=== PATIENT | female | born 1975 | race Caucasian/White ===

== ENCOUNTER 2018-03-11 10:35 | Inpatient (IN) | payer MEDICARE, MEDICAID ==
[2018-03-11 11:11] LABS: VENOUS BLOOD BASE EXCESS -1.8 mmol/L; VENOUS BLOOD HCO3 25.3 mmol/L (20-32); VENOUS BLOOD PCO2 51.7 mmHg (35-63); VENOUS BLOOD PH 7.31 (7.30-7.42)
[2018-03-11 11:14] LABS: ABSOLUTE BASOPHILS # (AUTO) 0.1 10^3/uL (0.0-0.2); ABSOLUTE EOSINOPHILS # (AUTO) 0.4 10^3/uL (0.0-0.6); ABSOLUTE LYMPHOCYTES (AUTO) 2.4 10^3/uL (0.5-4.7); ABSOLUTE MONOCYTES (AUTO) 0.7 10^3/uL (0.1-1.4); BASOPHILS % (AUTO) 0.9 % (0-2); EOSINOPHILS % (AUTO) 4.1 % (0-6); HEMATOCRIT 42.8 % (36.0-47.0); HEMOGLOBIN 14.5 g/dL (12.0-15.5); LYMPHOCYTES % (AUTO) 27.7 % (13-45); MEAN CORPUSCULAR VOLUME 88 fl (80-97); MONOCYTES % (AUTO) 8.4 % (3-13); PLATELET COUNT 377 10^3/uL (150-450); RED BLOOD COUNT 4.85 10^6/uL (3.72-5.28); RED CELL DISTRIBUTION WIDTH 14.3 % (11.5-14.0); SEGMENTED NEUTROPHILS % (AUTO) 58.9 % (42-78); TOTAL CELLS COUNTED % (AUTO) 100 %; WHITE BLOOD COUNT 8.5 10^3/uL (4.0-10.5)
[2018-03-11] MEDS ORDERED: IPRATROPIUM/ALBUTEROL 0.5-2.5 MG/3 ML AMPUL NEB ONE (11:15)
[2018-03-11] MEDS ORDERED: MAGNESIUM SULFATE/D5W 1 GM/100 ML RTUPB IV ONE (11:15)
[2018-03-11] MEDS ORDERED: ONDANSETRON HCL INJ/PF 4 MG/2 ML SDV IV ONE (11:25)
[2018-03-11] MEDS ORDERED: PROCHLORPERAZINE EDISYLATE INJ 10 MG/2 ML VIAL IV ONE (11:25)
[2018-03-11 11:29] LABS: ALANINE AMINOTRANSFERASE 31 U/L (9-52); ALBUMIN 4.9 g/dL (3.5-5.0); ALKALINE PHOSPHATASE 64 U/L (38-126); ANION GAP 15 (5-19); ASPARTATE AMINO TRANSFERASE 37 U/L (14-36); BILIRUBIN,DIRECT 0.4 mg/dL (0.0-0.4); BILIRUBIN,TOTAL 0.5 mg/dL (0.2-1.3); BLOOD UREA NITROGEN 10 mg/dL (7-20); CALCIUM 9.5 mg/dL (8.4-10.2); CARBON DIOXIDE 24 mmol/L (22-30); CHLORIDE 105 mmol/L (98-107); CREATINE KINASE 272 U/L (30-135); GLUCOSE 126 mg/dL (75-110); LIPASE 116.7 U/L (23-300); POTASSIUM 3.9 mmol/L (3.6-5.0); SODIUM 144.4 mmol/L (137-145); TOTAL PROTEIN 8.3 g/dL (6.3-8.2)
[2018-03-11 11:41] LABS: CREATINE KINASE MB 3.92 ng/mL (<4.55)
--- NOTE | 2018-03-11 11:42 | RADIOLOGY REPORT (SQ) ---
EXAM DESCRIPTION: CHEST SINGLE VIEW COMPLETED DATE/TIME: 03/11/2018 11:33 am REASON FOR STUDY: sob COMPARISON: 10/09/2015 EXAM PARAMETERS: NUMBER OF VIEWS: One view. TECHNIQUE: Single frontal radiographic view of the chest acquired. RADIATION DOSE: NA LIMITATIONS: None. FINDINGS: LUNGS AND PLEURA: No opacities, masses or pneumothorax. No pleural effusion. MEDIASTINUM AND HILAR STRUCTURES: No masses. Contour normal. HEART AND VASCULAR STRUCTURES: Heart normal in size. Normal vasculature. BONES: No acute findings. HARDWARE: None in the chest. OTHER: No other significant finding. IMPRESSION: NO ACUTE RADIOGRAPHIC FINDING IN THE CHEST. TECHNICAL DOCUMENTATION: JOB ID: [id number] [employer]- All Rights Reserved Reading location - IP/workstation name: [email or web address]
[2018-03-11 11:43] LABS: TROPONIN I < 0.012 ng/mL
[2018-03-11 12:05] LABS: APPEARANCE,URINE CLEAR; BILIRUBIN,URINE NEGATIVE (NEGATIVE); COLOR,URINE STRAW; GLUCOSE, URINE NEGATIVE (NEGATIVE); KETONES,URINE NEGATIVE (NEGATIVE); LEUKOCYTE ESTERASE,URINE NEGATIVE (NEGATIVE); NITRITE,URINE NEGATIVE (NEGATIVE); PROTEIN,URINE NEGATIVE (NEGATIVE); URINE SPECIFIC GRAVITY 1.006; UROBILINOGEN,URINE NEGATIVE mg/dL (<2.0)
[2018-03-11 12:24] LABS: URINE AMPHETAMINES SCREEN UNCONFIRMED POSITIVE; URINE BARBITURATES SCREEN NEGATIVE; URINE BENZODIAZEPINES SCREEN UNCONFIRMED POSITIVE; URINE COCAINE SCREEN UNCONFIRMED POSITIVE; URINE MARIJUANA (THC) SCREEN UNCONFIRMED POSITIVE; URINE METHADONE SCREEN NEGATIVE; URINE PHENCYCLIDINE SCREEN NEGATIVE
--- NOTE | 2018-03-11 13:36 | ER Document Report ---
ED General - General Chief Complaint: Respiratory Distress Stated Complaint: BREATHING DIFFICULTY Time Seen by Provider: 03/11/18 10:53 TRAVEL OUTSIDE OF THE [place] IN LAST 30 DAYS: No - HPI Patient complains to provider of: Respiratory distress Notes: Patient with a history of COPD and cigarette use comes in today for short distress. According to EMS because of the patient's hospital for shortness of breath found patient to be hypoxic with SPO2 lower than 85 on room air patient was given multiple breathing treatments along with 2 g of magnesium and IV Solu- Medrol. Patient had minimal improvement with a SPO2 8889 after breathing treatments therefore was transitioned over to CPAP. Upon my evaluation patient was continued on CPAP however is now able to speak in full sentences which is improvement according to EMS. Denies any recent travel or antibiotics. Patient denies smoking still although she does smell of cigarette smoke. Patient states that she has been noncompliant with her respiratory therapy intermittent use of her Spiriva the out of her albuterol. Patient was transitioned from CPAP to BiPAP without difficulty. - Related Data Allergies/Adverse Reactions: lorazepam [From Ativan] Allergy (Verified 10/09/15 01:56) naproxen [Naproxen] Allergy (Verified 10/09/15 01:56) tramadol [Tramadol] Allergy (Verified 10/09/15 21:21) Past Medical History - Social History Smoking Status: Current Every Day Smoker Chew tobacco use (# tins/day): No Frequency of alcohol use: Rare Drug Abuse: None Family History: Reviewed & Not Pertinent Patient has suicidal ideation: No Patient has homicidal ideation: No Pulmonary Medical History: Reports: Hx Asthma, Hx COPD Renal/ Medical History: Denies: Hx Peritoneal Dialysis Musculoskeltal Medical History: Reports Hx Fibromyalgia Psychiatric Medical History: Reports: Hx Anxiety, Hx Depression Past Surgical History: Reports: Hx Gynecologic Surgery - D&S; hysteroscopy - Immunizations Hx Diphtheria, Pertussis, Tetanus Vaccination: No Review of Systems - Review of Systems Constitutional: No symptoms reported EENT: No symptoms reported Cardiovascular: No symptoms reported Respiratory: Cough, Short of breath, Wheezing Gastrointestinal: No symptoms reported Genitourinary: No symptoms reported Female Genitourinary: No symptoms reported Musculoskeletal: No symptoms reported Skin: No symptoms reported Hematologic/Lymphatic: No symptoms reported Neurological/Psychological: No symptoms reported -: Yes All other systems reviewed and negative Physical Exam - Vital signs Vitals: Temp Pulse Ox 97.6 F 100 03/11/18 10:37 03/11/18 10:37 Interpretation: Tachypneic - General General appearance: Appears well, Alert - HEENT Head: Normocephalic, Atraumatic Eyes: Normal Pupils: PERRL - Respiratory Respiratory status: No respiratory distress Chest status: Nontender Breath sounds: Rhonchi, Wheezing Chest palpation: Normal - Cardiovascular Rhythm: Regular Heart sounds: Normal auscultation Murmur: No - Abdominal Inspection: Normal Distension: No distension Bowel sounds: Normal Tenderness: Nontender Organomegaly: No organomegaly - Back Back: Normal, Nontender - Extremities General upper extremity: Normal inspection, Nontender, Normal color, Normal ROM , Normal temperature General lower extremity: Normal inspection, Nontender, Normal color, Normal ROM , Normal temperature, Normal weight bearing. No: Antonella's sign - Neurological Neuro grossly intact: Yes Cognition: Normal Orientation: AAOx4 Marysol Coma Scale Eye Opening: Spontaneous [place] Coma Scale Verbal: Oriented [place] Coma Scale Motor: Obeys Commands Marysol Coma Scale Total: 15 Speech: Normal Motor strength normal: LUE, RUE, LLE, RLE Sensory: Normal - Psychological Associated symptoms: Normal affect, Normal mood - Skin Skin Temperature: Warm Skin Moisture: Dry Skin Color: Normal Course - Re-evaluation Re-evalutation: 03/11/18 15:01 Patient was given magnesium and more breathing treatments bronchodilator therapy continued on BiPAP was able to wean her oxygenation down to 30 from an FiO2 of 60 initially. Laboratory studies chest x-ray did not reveal any critical pathology. Patient's case will be referred to the hospitalist for further evaluation. - Vital Signs Vital signs: Temp Pulse Resp BP Pulse Ox 97.6 F 15 129/79 H 96 03/11/18 10:37 03/11/18 14:01 03/11/18 14:00 03/11/18 14:01 - Laboratory Result Diagrams: 03/11/18 10:39 03/11/18 10:39 Laboratory results interpreted by me: 03/11/18 03/11/18 10:39 10:39 RDW 14.3 H Glucose 126 H AST 37 H Creatine Kinase 272 H Total Protein 8.3 H Critical Care Note - Critical Care Note Total time excluding time spent on procedures (mins): 35 Comments: Multiple evaluation patient on BiPAP managing BiPAP titrating oxygen patient with respiratory distress Discharge - Discharge Clinical Impression: Acute and chronic respiratory failure Qualifiers: Respiratory failure complication: unspecified whether with hypoxia or hypercapnia Qualified Code(s): J96.20 - Acute and chronic respiratory failure, unspecified whether with hypoxia or hypercapnia Condition: Good Disposition: ADMITTED INPATIENT Admitting Provider: Toni Arrieta Unit Admitted: Telemetry
[2018-03-11] MEDS ORDERED: LEVALBUTEROL HCL NEB 0.63 MG/3 ML AMPUL NEB PRN ×2 (13:43→15:30)
[2018-03-11] MEDS ORDERED: IPRATROPIUM/ALBUTEROL 0.5-2.5 MG/3 ML AMPUL NEB SCH (14:00)
[2018-03-11] MEDS: NORMAL SALINE 1000 ML 1,000 ML IV PRN (14:16)
[2018-03-11] MEDS: METHYLPREDNISOLONE INJ 125 MG/2 ML SDV IV SCH ×2 (14:16→20:16)
[2018-03-11] MEDS ORDERED: NICOTINE 21 MG/24 HR PATCH.TD24 TD ONE (15:00)
[2018-03-11] MEDS: IPRATROPIUM/ALBUTEROL 0.5-2.5 MG/3 ML AMPUL NEB SCH ×2 (15:39→19:43)
[2018-03-11] MEDS ORDERED: LEVOFLOXACIN 750 MG/D5W RTU 750 MG/150 ML RTUPB IV SCH (16:00)
[2018-03-11] MEDS ORDERED: BUTALB/ACETAMINOPHEN/CAFFEINE 1 TAB EACH PO PRN (16:14)
--- NOTE | 2018-03-11 17:59 | PDOC H&P ---
History of Present Illness Admission Date/PCP: 03/11/18 14:51 Patient complains of: Shortness of breath History of Present Illness: CRISTIAN ARAUJO is a 43 year old female who presented to the emergency department with shortness of breath. She states her symptoms began roughly 2-3 weeks ago, initially starting as a dry cough. It progressed to severe shortness of breath , the patient stated she was gasping for air at this morning when she called EMS. The patient states she attempted to use her albuterol nebulizer and rescue inhaler at home, but they offered no symptom relief. Patient states that her symptoms are worse during the daytime. She reports that she is recently been helping her mother clean out her house, and the patient believes the heat and dust exposure are what triggered her COPD exacerbation. The patient was brought in by ambulance, given nebulizer treatments, IV Solumedrol, and 2 g of magnesium sulfate IV en route to [facility]. Her SPO2 was 85% and in obvious respiratory distress, the patient was started on BIPAP. Once in the emergency department, she was continued on BIPAP and given DuoNeb treatments as well as a Xopenex nebulizer. She was complaining of a migraine and treated with Compazine. Minimal settings on BIPAP (12/6 FiO2 30%) but unable to wean. Initial VS BP 137/86 HR 93 T 97.6 SPO2 100% RR 23. Her lab work was relatively benign, no leukocytosis. EKG demonstrates normal sinus rhythm, no evidence of acute infarction or ischemia. Troponin <0.012. Urine toxicology positive for amphetamines, benzodiazepines, cocaine, and marijuana. Upon assessment, the patient was resting comfortably in bed on BIPAP. She is able to speak in full sentences but drifts off to sleep when she is not talking. Lung sounds were clear to auscultation. The patient complains of mild shortness of breath, a mild headache and 'soreness' to her chest secondary to coughing. The patient states that she does continue to smoke, approximately 1 pack per day. The patient also states that she has recently been in contact with her friend who she states was 'sick.' Plan to admit to hospitalist service. Past Medical History Pulmonary Medical History: Reports: Asthma, Chronic Obstructive Pulmonary Disease (COPD), Pneumonia Musculoskeltal Medical History: Reports: Fibromyalgia Psychiatric Medical History: Reports: Depression Past Surgical History Past Surgical History: Reports: None Social History Information Source: Patient Lives with: Alone Smoking Status: Current Every Day Smoker Cigarettes Packs Per Day: 1 Number of Years Smokin Frequency of Alcohol Use: None Hx Recreational Drug Use: Yes - MARIJUANA, COCAINE Hx Prescription Drug Abuse: No Family History Family History: COPD, DM, Malignancy, Other - PNA Parental Family History Reviewed: Yes Children Family History Reviewed: Yes Sibling(s) Family History Reviewed.: Yes Medication/Allergy Home Medications: Albuterol Sulfate [Albuterol Sulfate Hfa] 1 - 2 puff IH Q4 PRN 03/29/14 Buspirone HCl [Buspar 10 mg Tablet] 10 mg PO Q12 03/11/18 Gabapentin [Neurontin] 800 mg PO Q8 03/11/18 Sumatriptan Succinate [Imitrex] 6 mg SQ DAILYP PRN 03/11/18 Allergies/Adverse Reactions: lorazepam [From Ativan] Allergy (Verified 10/09/15 01:56) naproxen [Naproxen] Allergy (Verified 10/09/15 01:56) tramadol [Tramadol] Allergy (Verified 10/09/15 21:21) Review of Systems All systems: reviewed and no additional remarkable complaints except as stated Physical Exam Vital Signs: Temp Pulse Resp BP Pulse Ox 97.6 F 85 14 127/76 H 96 03/11/18 10:37 03/11/18 15:40 03/11/18 15:40 03/11/18 15:00 03/11/18 15:40 Pulse Oximeter Continuous Start: 03/11/18 13: 41 Freq: RTQ4 Status: Active Document 03/11/18 15:40 LDA (Rec: 03/11/18 15:42 LDA [email or web address]) Pulse Oximetry Assessment Equipment Usage Equipment Standby Continuous SpO2 Machine # pt. on a monitor General appearance: PRESENT: mild distress, thin Head exam: PRESENT: atraumatic Eye exam: PRESENT: conjunctiva pink, PERRLA Mouth exam: PRESENT: dry mucosa Teeth exam: PRESENT: poor dentation Neck exam: PRESENT: full ROM Respiratory exam: PRESENT: chest wall tenderness, clear to auscultation genesis, symmetrical, unlabored Cardiovascular exam: PRESENT: +S1, +S2 Pulses: PRESENT: normal radial pulses, normal dorsalis pedis pul Vascular exam: PRESENT: normal capillary refill GI/Abdominal exam: PRESENT: normal bowel sounds, soft. ABSENT: tenderness Rectal exam: PRESENT: deferred Extremities exam: PRESENT: full ROM Musculoskeletal exam: PRESENT: ambulatory, full ROM Neurological exam: PRESENT: alert, awake, oriented to person, oriented to place , oriented to time, oriented to situation Psychiatric exam: PRESENT: appropriate affect Skin exam: PRESENT: dry, intact, warm Results Impressions: Chest X-Ray 03/11/18 10:53 IMPRESSION: NO ACUTE RADIOGRAPHIC FINDING IN THE CHEST. Status: Imported from PACS Assessment & Plan - Diagnosis (1) Acute and chronic respiratory failure Qualifiers: Respiratory failure complication: unspecified whether with hypoxia or hypercapnia Qualified Code(s): J96.20 - Acute and chronic respiratory failure , unspecified whether with hypoxia or hypercapnia Is this a current diagnosis for this admission?: Yes Plan: Secondary to COPD exacerbation stemming from upper respiratory infection Currently on BiPAP 12/6 FiO2 30% to maintain SPO2>92% Minimal BIPAP settings, will attempt to wean when patient is more awake CXR benign DuoNebs q6h scheduled Xopenex q4h PRN SoluMedrol IV q6h Mucinex q12h Levaquin IV for empiric antibiotic coverage for acute bronchitis in the COPD patient with severe exacerbation (2) COPD exacerbation Is this a current diagnosis for this admission?: Yes Plan: Secondary to upper respiratory infection Patient endorses [id number] smoking history Plan as above (3) Migraines Qualifiers: Migraine type: unspecified Status migrainosus presence: without status migrainosus Intractability: not intractable Qualified Code(s): G43.909 - Migraine, unspecified, not intractable, without status migrainosus Is this a current diagnosis for this admission?: Yes Plan: Patient endorses history of migraines. Treated with Compazine, Zofran and IV fluids in the emergency department. Fioricet as needed for pain (4) Tobacco abuse Is this a current diagnosis for this admission?: Yes Plan: Patient endorses 30+ pack year smoking history Nicotine patch offered (5) Fibromyalgia Is this a current diagnosis for this admission?: Yes Plan: Patient endorses history of fibromyalgia. Tylenol as needed for pain. Neurontin currently on hold until level of alertness improves (6) Illicit drug use Is this a current diagnosis for this admission?: Yes Plan: Supportive care - Time Time Spent: 30 to 50 Minutes Anticipated discharge: Home - Inpatient Certification Based on my medical assessment, after consideration of the patient's comorbidities, presenting symptoms, or acuity I expect that the services needed warrant INPATIENT care.: Yes I certify that my determination is in accordance with my understanding of Medicare's requirements for reasonable and necessary INPATIENT services [42 CFR 412.3e].: Yes Medical Necessity: Need for Nebulizer Therapy and Monitoring of Response, Risk of Complication if Not Cared For in Hospital
[2018-03-11] MEDS ORDERED: METHYLPREDNISOLONE INJ 40 MG/1 ML SDV IV SCH (18:00)
[2018-03-11] MEDS ORDERED: GUAIFENESIN 600 MG TABLET.SA PO SCH (22:00)
[2018-03-11] MEDS ORDERED: BUSPIRONE HCL 10 MG TABLET PO SCH (22:00)
--- NOTE | 2018-03-11 23:07 | EKG REPORT ---
SEVERITY:- NORMAL ECG - SINUS RHYTHM : Confirmed by: Jenae Stevens 11-Mar-2018 23:06:48
[2018-03-12] MEDS: METHYLPREDNISOLONE INJ 125 MG/2 ML SDV IV SCH ×2 (02:30→10:41)
[2018-03-12] MEDS: NORMAL SALINE 1000 ML 1,000 ML IV PRN (02:30)
[2018-03-12 03:56] VITALS: BP 131/75
[2018-03-12 06:38] LABS: ABSOLUTE LYMPHOCYTES (AUTO) 0.7 10^3/uL (0.5-4.7); ABSOLUTE MONOCYTES (AUTO) 0.1 10^3/uL (0.1-1.4); ABSOLUTE NEUT (AUTO) 4.8 10^3/uL (1.7-8.2); BASOPHILS % (AUTO) 0.1 % (0-2); HEMATOCRIT 39.7 % (36.0-47.0); HEMOGLOBIN 13.4 g/dL (12.0-15.5); LYMPHOCYTES % (AUTO) 11.7 % (13-45); MEAN CORPUSCULAR HEMOGLOBIN 29.9 pg (27.0-33.4); MEAN CORPUSCULAR HGB CONC 33.7 g/dL (32.0-36.0); MEAN CORPUSCULAR VOLUME 89 fl (80-97); MONOCYTES % (AUTO) 2.6 % (3-13); PLATELET COUNT 346 10^3/uL (150-450); RED BLOOD COUNT 4.47 10^6/uL (3.72-5.28); RED CELL DISTRIBUTION WIDTH 14.3 % (11.5-14.0); SEGMENTED NEUTROPHILS % (AUTO) 85.6 % (42-78); TOTAL CELLS COUNTED % (AUTO) 100 %; WHITE BLOOD COUNT 5.6 10^3/uL (4.0-10.5)
[2018-03-12 07:06] LABS: ANION GAP 14 (5-19); BLOOD UREA NITROGEN 9 mg/dL (7-20); CALCIUM 9.5 mg/dL (8.4-10.2); CARBON DIOXIDE 23 mmol/L (22-30); CHLORIDE 105 mmol/L (98-107); GLUCOSE 228 mg/dL (75-110); PHOSPHORUS 3.9 mg/dL (2.5-4.5); POTASSIUM 4.6 mmol/L (3.6-5.0); SODIUM 141.7 mmol/L (137-145)
[2018-03-12] MEDS: IPRATROPIUM/ALBUTEROL 0.5-2.5 MG/3 ML AMPUL NEB SCH (08:12)
[2018-03-12] MEDS ORDERED: ENOXAPARIN SODIUM INJ 30 MG/0.3 ML DISP.SYRIN SUBCUT SCH (10:00)
--- NOTE | 2018-03-12 12:20 | PDOC CONSULTATION ---
Consultation Consult Date: 03/12/18 - Patient has left AMA History of Present Illness Admission Date/PCP: 03/11/18 14:51 History of Present Illness: CRISTIAN ARAUJO is a 43 year old female Past Medical History Pulmonary Medical History: Reports: Asthma, Chronic Obstructive Pulmonary Disease (COPD), Pneumonia Musculoskeltal Medical History: Reports: Fibromyalgia Psychiatric Medical History: Reports: Depression Past Surgical History Past Surgical History: Reports: None Social History Lives with: Alone Smoking Status: Current Every Day Smoker Cigarettes Packs Per Day: 1 Number of Years Smokin Frequency of Alcohol Use: None Hx Recreational Drug Use: Yes - MARIJUANA, COCAINE Drugs: Marijuana Hx Prescription Drug Abuse: No Family History Family History: COPD, DM, Malignancy, Other - PNA Medication/Allergy Home Medications: Albuterol Sulfate [Albuterol Sulfate Hfa] 1 - 2 puff IH Q4 PRN 03/29/14 Buspirone HCl [Buspar 10 mg Tablet] 10 mg PO Q12 03/11/18 Gabapentin [Neurontin] 800 mg PO Q8 03/11/18 Sumatriptan Succinate [Imitrex] 6 mg SQ DAILYP PRN 03/11/18 Allergies/Adverse Reactions: lorazepam [From Ativan] Allergy (Verified 10/09/15 01:56) naproxen [Naproxen] Allergy (Verified 10/09/15 01:56) tramadol [Tramadol] Allergy (Verified 10/09/15 21:21) Physical Exam Vital Signs: Temp Pulse Resp BP Pulse Ox 97.6 F 77 14 131/75 H 98 03/12/18 03:42 03/12/18 08:12 03/12/18 08:12 03/12/18 03:42 03/12/18 08:12 Pulse Oximeter Continuous Start: 03/11/18 13: 41 Freq: RTQ4 Status: Discharge Document 03/12/18 08:12 LDA (Rec: 03/12/18 09:44 LDA [email or web address]) Pulse Oximetry Assessment Oxygen Saturation (92-100) 98 Oxygen Delivery Method Room Air Fraction of Inspired Oxygen (FIO2) 21 Equipment Usage Equipment in Use Continuous SpO2 Machine # 2 Intake & Output 03/11/18 03/12/18 03/13/18 06:59 06:59 06:59 Intake Total 1503 Balance 1503 Weight 46.1 kg Results Laboratory Results: 03/12/18 06:02 03/12/18 06:02 03/12/18 03/12/18 06:02 06:02 WBC 5.6 RBC 4.47 Hgb 13.4 Hct 39.7 MCV 89 MCH 29.9 MCHC 33.7 RDW 14.3 H Plt Count 346 Seg Neutrophils % 85.6 H Lymphocytes % 11.7 L Monocytes % 2.6 L Eosinophils % 0.0 Basophils % 0.1 Absolute Neutrophils 4.8 Absolute Lymphocytes 0.7 Absolute Monocytes 0.1 Absolute Eosinophils 0.0 Absolute Basophils 0.0 Sodium 141.7 Potassium 4.6 Chloride 105 Carbon Dioxide 23 Anion Gap 14 BUN 9 Creatinine 0.75 Est GFR ( Amer) > 60 Est GFR (Non-Af Amer) > 60 Glucose 228 H Calcium 9.5 Phosphorus 3.9 Magnesium 2.3 Impressions: Chest X-Ray 03/11/18 10:53 IMPRESSION: NO ACUTE RADIOGRAPHIC FINDING IN THE CHEST.
--- NOTE | 2018-03-14 09:58 | PDOC DISCHARGE SUMMARY ---
<ZEVMARION A - Last Filed: 03/14/18 09:54> General - Admit/Disc Date/PCP Admission Date/Primary Care Provider: 03/11/18 14:51 Discharge Date: 03/12/18 - Discharge Diagnosis (1) Acute and chronic respiratory failure Is this a current diagnosis for this admission?: Yes (2) COPD exacerbation Is this a current diagnosis for this admission?: Yes (3) Migraines Is this a current diagnosis for this admission?: Yes (4) Tobacco abuse Is this a current diagnosis for this admission?: Yes (5) Fibromyalgia Is this a current diagnosis for this admission?: Yes (6) Illicit drug use Is this a current diagnosis for this admission?: Yes - Additional Information Home Medications: Albuterol Sulfate [Albuterol Sulfate Hfa] 1 - 2 puff IH Q4 PRN 03/29/14 Buspirone HCl [Buspar 10 mg Tablet] 10 mg PO Q12 03/11/18 Gabapentin [Neurontin] 800 mg PO Q8 03/11/18 Sumatriptan Succinate [Imitrex] 6 mg SQ DAILYP PRN 03/11/18 History of Present Illness History of Present Illness: CRISTIAN ARAUJO is a 43 year old female who presented to the emergency department with shortness of breath. She states her symptoms began roughly 2-3 weeks ago, initially starting as a dry cough. It progressed to severe shortness of breath , the patient stated she was gasping for air at this morning when she called EMS. The patient states she attempted to use her albuterol nebulizer and rescue inhaler at home, but they offered no symptom relief. Patient states that her symptoms are worse during the daytime. She reports that she is recently been helping her mother clean out her house, and the patient believes the heat and dust exposure are what triggered her COPD exacerbation. The patient was brought in by ambulance, given nebulizer treatments, IV Solumedrol, and 2 g of magnesium sulfate IV en route to [facility]. Her SPO2 was 85% and in obvious respiratory distress, the patient was started on BIPAP. Once in the emergency department, she was continued on BIPAP and given DuoNeb treatments as well as a Xopenex nebulizer. She was complaining of a migraine and treated with Compazine. Minimal settings on BIPAP (12/6 FiO2 30%) but unable to wean. Initial VS BP 137/86 HR 93 T 97.6 SPO2 100% RR 23. Her lab work was relatively benign, no leukocytosis. EKG demonstrates normal sinus rhythm, no evidence of acute infarction or ischemia. Troponin <0.012. Urine toxicology positive for amphetamines, benzodiazepines, cocaine, and marijuana. Upon assessment, the patient was resting comfortably in bed on BIPAP. She is able to speak in full sentences but drifts off to sleep when she is not talking. Lung sounds were clear to auscultation. The patient complains of mild shortness of breath, a mild headache and 'soreness' to her chest secondary to coughing. The patient states that she does continue to smoke, approximately 1 pack per day. The patient also states that she has recently been in contact with her friend who she states was 'sick.' Plan to admit to hospitalist service. Hospital Course Hospital Course: The patient left [place] prior to morning rounds. She removed her IV, got herself dressed, and walked out of the hospital barefooted. Nursing staff notified the author of the incident when they became aware that they patient had eloped. There was no reason to notify [employer] since the patient had removed her IV prior to leaving the hospital. Physical Exam Vital Signs: Temp Pulse Resp BP Pulse Ox 97.6 F 77 14 131/75 H 98 03/12/18 03:42 03/12/18 08:12 03/12/18 08:12 03/12/18 03:42 03/12/18 08:12 Pulse Oximeter Continuous Start: 03/11/18 13: 41 Freq: RTQ4 Status: Discharge Document 03/12/18 08:12 LDA (Rec: 03/12/18 09:44 LDA [email or web address]) Pulse Oximetry Assessment Oxygen Saturation (92-100) 98 Oxygen Delivery Method Room Air Fraction of Inspired Oxygen (FIO2) 21 Equipment Usage Equipment in Use Continuous SpO2 Machine # 2 Results Laboratory Results: 03/12/18 06:02 03/12/18 06:02 Impressions: Chest X-Ray 03/11/18 10:53 IMPRESSION: NO ACUTE RADIOGRAPHIC FINDING IN THE CHEST. Status: Imported from PACS Qualifiers - * PATIENT BEING DISCHARGED WITH ANY OF THE FOLLOWING DIAGNOSIS: No Plan Discharge Plan: LEFT AMA <VITAFEBRUARY C - Last Filed: 03/14/18 16:03> General - Admit/Disc Date/PCP Admission Date/Primary Care Provider: 03/11/18 14:51 History of Present Illness History of Present Illness: CRISTIAN ARAUJO is a 43 year old female Physical Exam Vital Signs: Temp Pulse Resp BP Pulse Ox 97.6 F 77 14 131/75 H 98 03/12/18 03:42 03/12/18 08:12 03/12/18 08:12 03/12/18 03:42 03/12/18 08:12 Pulse Oximeter Continuous Start: 03/11/18 13: 41 Freq: RTQ4 Status: Discharge Document 03/12/18 08:12 LDA (Rec: 03/12/18 09:44 LDA [email or web address]) Pulse Oximetry Assessment Oxygen Saturation (92-100) 98 Oxygen Delivery Method Room Air Fraction of Inspired Oxygen (FIO2) 21 Equipment Usage Equipment in Use Continuous SpO2 Machine # 2 Results Laboratory Results: 03/12/18 06:02 03/12/18 06:02 Impressions: Chest X-Ray 03/11/18 10:53 IMPRESSION: NO ACUTE RADIOGRAPHIC FINDING IN THE CHEST. Plan Discharge Plan: Co signing note for Marion Joshua NP
== END 2018-03-12 10:10 | disposition left against medical advice (07) | DRG 189 ==
LOC: ER 10:35 → EH 14:51 → 5 16:29
PROVIDERS: ADMIT Internal Medicine; ATTEND Internal Medicine
DX: J96.21 Acute and chronic respiratory failure with hypoxia (principal); J44.1 Chronic obstructive pulmonary disease with (acute) exacerbation; F14.90 Cocaine use, unspecified, uncomplicated; F12.90 Cannabis use, unspecified, uncomplicated; F19.90 Other psychoactive substance use, unspecified, uncomplicated; F41.8 Other specified anxiety disorders; M79.7 Fibromyalgia; G43.909 Migraine, unspecified, not intractable, without status migrainosus; F17.210 Nicotine dependence, cigarettes, uncomplicated
CPT/HCPCS: 36415; 71045; 80048; 80053; 80307; 81001; 81025; 82550; 82553; 82803; 83690; 83735; 84100; 84484; 85025; 93005; 93010; 94640; 94660; 94762; 96361; 96365; 96375; 99291; J0780; J1956; J2405; J2930; J3475; J3490; J7030; J7620